=== PATIENT | female | born 1935 | race Two or more races ===

== ENCOUNTER 2019-09-17 13:59 | Inpatient (IN) | payer OTHER ==
[~2019-09-17] VITALS: Ht 162.6 cm; Wt 77.1 kg
[2019-09-17 13:30] VITALS: BP 196/100
--- NOTE | 2019-09-17 13:30 | NUR ---
Admission note: Patient is a 84year old female brought in as a direct admit from [facility]. Patient placed on a 5150 for being Gravely Disabled. Police were called because patient was found wondering around the neighborhood , lost and without shoes. Patients home was without food and patient claimed not to have eaten for over 24 hours. Upon face to face evaluation, patient is found to be very forgetful. Unaware of medical conditions or any medications from home. Only belongings with patient are pants and a shirt. No ID. Patient claims to live with her son "Rodney" but does not know the phone number. Patients B/P is noted high and [employer] notified for orders. Patient is anxious , forgetful and unable to contract for safety. Patient rights handbook give with the Advisement. Oriented patient to the unit and to the rules and protocol. Monitoring for behavior escalation. No acute distress at this time. Patients probate conservator was called and updated. The conservator is concerned with the patients living arrangement with son and this matter will be referred to the social workers.
[2019-09-17] MEDS ORDERED: MAGNESIUM HYDROXIDE 30 ML LIQUID UDC PO PRN (14:15)
[2019-09-17] MEDS ORDERED: MAG HYDROX/AL HYDROX/SIMETH 30 ML LIQUID UDC PO PRN (14:15)
[2019-09-17] MEDS ORDERED: BLOOD SUGAR DIAGNOSTIC 1 EACH STRIP VI ONE (14:15)
[2019-09-17] MEDS ORDERED: ACETAMINOPHEN 325 MG TABLET PO PRN (14:15)
[2019-09-17] MEDS: LORAZEPAM 1 MG TABLET PO PRN (15:39)
[2019-09-17 16:53] VITALS: BP 169/86
[2019-09-17] MEDS: hydrALAZINE HCL 10 MG TABLET PO PRN (17:21)
[2019-09-17 20:09] VITALS: BP 119/83
[2019-09-17] MEDS: RIVASTIGMINE TARTRATE 1.5 MG CAPSULE PO SCH (21:37)
--- NOTE | 2019-09-18 06:19 | NUR ---
Patient slept about a total of 8.0 hrs. last night.
[2019-09-18 07:30] VITALS: BP 171/90
[2019-09-18 07:52] LABS: BASOPHILS % (AUTO) 0.4 % (0.0-2.0); EOSINOPHILS % (AUTO) 0.6 % (0.0-7.0); HEMATOCRIT 36.8 % (31.2-41.9); HEMOGLOBIN 12.5 g/dL (10.9-14.3); LYMPHOCYTES # (AUTO) 1.7 K/uL (20.0-40.0); LYMPHOCYTES % (AUTO) 26.4 % (20.5-51.5); MEAN CORPUSCULAR HEMOGLOBIN 28.4 uug (24.7-32.8); MEAN CORPUSCULAR HGB CONC 34 g/dL (32.3-35.6); MEAN CORPUSCULAR VOLUME 83.4 fL (75.5-95.3); MONOCYTES # (AUTO) 0.7 K/uL (2.0-10.0); MONOCYTES % (AUTO) 10.2 % (0.0-11.0); NEUTROPHILS # (AUTO) 4.1 K/uL (1.8-8.9); NEUTROPHILS % (AUTO) 62.4 % (38.5-71.5); PLATELET COUNT (AUTO) 233 K/uL (179-408); RED BLOOD CELL COUNT(AUTO) 4.41 MIL/uL (3.63-4.92); WHITE BLOOD COUNT (AUTO) 6.6 K/uL (3.8-11.8)
[2019-09-18 08:04] LABS: BILIRUBIN,TOTAL 0.8 mg/dL (0.2-1.0); CREATININE 1.3 mg/dL (0.6-1.3); MAGNESIUM 2.2 mg/dL (1.8-2.4); PHOSPHOROUS 3.7 mg/dL (2.5-4.9); POTASSIUM 4.7 mmol/L (3.5-5.1); TOTAL PROTEIN, SERUM 6.8 g/dL (6.4-8.2)
[2019-09-18] MEDS: RIVASTIGMINE TARTRATE 1.5 MG CAPSULE PO SCH ×2 (08:45→20:02)
[2019-09-18] MEDS: AMLODIPINE 2.5 MG TABLET PO SCH (08:45)
[2019-09-18] MEDS: hydrALAZINE HCL 10 MG TABLET PO PRN (08:50)
[2019-09-18] MEDS: LORAZEPAM 1 MG TABLET PO PRN ×2 (11:23→18:13)
[2019-09-18 16:36] VITALS: BP 117/51
[2019-09-18 20:24] VITALS: BP 122/55
--- NOTE | 2019-09-19 06:18 | NUR ---
Patient slept about a total of 7.30 hours last night.
[2019-09-19 07:30] VITALS: BP 132/69
[2019-09-19] MEDS: CLONAZEPAM 0.5 MG TABLET PO SCH ×2 (08:43→16:58)
[2019-09-19] MEDS: risperiDONE 0.25 MG TABLET PO SCH ×2 (08:43→21:29)
[2019-09-19] MEDS: RIVASTIGMINE TARTRATE 1.5 MG CAPSULE PO SCH ×2 (08:43→21:29)
[2019-09-19] MEDS: AMLODIPINE 2.5 MG TABLET PO SCH (08:44)
[2019-09-19] MEDS: LORAZEPAM 1 MG TABLET PO PRN ×2 (13:10→23:44)
[2019-09-19 15:43] VITALS: BP 141/68
--- NOTE | 2019-09-19 22:00 | NUR ---
received to care, confused, but easy to direct, and pleasant upon approach. compliant with medications, and staff direction. as of 0, she remains awake in bed, but calm. no distress noted. will continue to monitor closely.
[2019-09-19 22:24] VITALS: BP 152/80
[2019-09-19] MEDS: TEMAZEPAM 7.5 MG CAPSULE PO PRN (22:44)
--- NOTE | 2019-09-19 22:44 | NUR ---
remains awake. pacing the hallway, asking for her car keys, so she can leave. reality orientation provided, but she remains fixed in her beliefs. PRN restoril was given, and she was redirected, back to bed. she is paranoid, and verbally hostile.
--- NOTE | 2019-09-19 23:44 | NUR ---
remains awake, and restless, requiring frequent redirection. PRN ativan was given, at this time.
--- NOTE | 2019-09-20 01:00 | NUR ---
remains restless, pacing the hallway, intermittently.
--- NOTE | 2019-09-20 01:40 | NUR ---
appears to be asleep. no distress noted.
--- NOTE | 2019-09-20 02:27 | NUR ---
is now awake, and pacing the hallway. asking for a taxi, home. was redirected back to her room.
--- NOTE | 2019-09-20 06:00 | NUR ---
slept 4 hours, total. continues to sleep. no distress noted.
[2019-09-20 07:30] VITALS: BP 131/59
--- NOTE | 2019-09-20 07:58 | NUR ---
Received patient in bed asleep, safety and comfort provided. will continue to monitor.
[2019-09-20] MEDS: RIVASTIGMINE TARTRATE 1.5 MG CAPSULE PO SCH ×2 (08:51→20:25)
[2019-09-20] MEDS: risperiDONE 0.25 MG TABLET PO SCH ×2 (08:51→20:25)
[2019-09-20] MEDS: CLONAZEPAM 0.5 MG TABLET PO SCH ×2 (08:51→17:21)
[2019-09-20] MEDS: AMLODIPINE 2.5 MG TABLET PO SCH (08:55)
--- NOTE | 2019-09-20 10:24 | NUR ---
Social Work UR Note: JOHN called Shirley with [facility] [phone] and left a voicemail for a return call.
--- NOTE | 2019-09-20 11:42 | NUR ---
Social Work Initial Discharge Plan: Patient currently resides at home [address] [place] [address]. Patient will be returning home upon discharge. SW will continue to work with patient, family, and MD to ensure a safe and proper discharge plan.
--- NOTE | 2019-09-20 11:42 | NUR ---
Social Work UR Note: Auth # [id number] JOHN spoke with Shirley with [facility] [phone] and discussed discharge planning. Shirley provided this lyric writer with the patient's conservator phone number Sean Levine ([phone]). Shirley stated that she has been in communication with Sean and are trying to decide whether or not the patient will go to assisted facility or return home. Shirley stated that Sean said the patient has the financial means to pay for a facility. Shirley will be calling this lyric writer back with the decision. However, Shirley stated that they might not authorize a longer stay for the patient ins the hospital. Auth # [id number] and to speak with Wallace to provide clinicals ([phone]).
--- NOTE | 2019-09-20 11:48 | NUR ---
Social Work UR Note: Auth # [id number] and to spoke with Franki to provide clinicals ([phone]) (fax: [phone]) and faxed patient's clinicals.
[2019-09-20 15:11] VITALS: BP 104/53
--- NOTE | 2019-09-20 15:36 | NUR ---
Social Work Firearms Report ([employer]): Water Filtration Technician completed and submitted a [employer] firearms report for 5150 grave disability certification. A copy of report has been placed in patient chart.
--- NOTE | 2019-09-20 15:44 | NUR ---
SW Family Contact: SW received a call from patient's daughter in law, Ginette Elias ([phone]) and was inquiring about information regarding the patient's whereabouts, and this travel writer directed her to the patient's conservator Sean Levine ([phone]).
--- NOTE | 2019-09-20 15:50 | NUR ---
JOHN Coordination of Care: SW spoke with Sean Levine pt's conservator from the Public [facility] ([phone]) and was discussed to find a Board and Care placement for the patient. Patient is accepted to [facility] [address] [place] [address] ([phone]; fax: [phone]), fleet administrator Amy. Estrada agreed with this placement.
[2019-09-20] MEDS: LORAZEPAM 1 MG TABLET PO PRN (19:37)
[2019-09-20 20:46] VITALS: BP 137/67
--- NOTE | 2019-09-20 22:00 | NUR ---
received to care, ambulating with an unsteady gait, up in christopher chair, for safety. remains anxious and confused. compliant with medications, and staff direction. PRN ativan was given at 1937, for anxiety, but it was ineffective. she was assisted to bed after taking her bedtime medications, but continued to get out of bed, so she was placed back in the christopher chair, for safety.
[2019-09-20] MEDS: TEMAZEPAM 7.5 MG CAPSULE PO PRN (22:20)
--- NOTE | 2019-09-20 22:20 | NUR ---
remains restless. PRN restoril, given for insomnia.
--- NOTE | 2019-09-21 01:46 | NUR ---
assited to bed at 0100. as of now, she appears to be asleep. no distress noted.
--- NOTE | 2019-09-21 06:00 | NUR ---
slept 3.0 hours, total. continues to sleep. no distress noted.
[2019-09-21 07:30] VITALS: BP 148/66
[2019-09-21] MEDS: risperiDONE 0.25 MG TABLET PO SCH ×2 (08:36→20:52)
[2019-09-21] MEDS: AMLODIPINE 2.5 MG TABLET PO SCH (08:36)
[2019-09-21] MEDS: CLONAZEPAM 0.5 MG TABLET PO SCH ×2 (08:36→16:14)
[2019-09-21] MEDS: RIVASTIGMINE TARTRATE 1.5 MG CAPSULE PO SCH ×2 (08:36→20:51)
[2019-09-21 16:11] VITALS: BP 164/84
[2019-09-21] MEDS: hydrALAZINE HCL 10 MG TABLET PO PRN (17:33)
[2019-09-21 19:58] VITALS: BP 141/65
[2019-09-21] MEDS: LORAZEPAM 1 MG TABLET PO PRN (20:01)
--- NOTE | 2019-09-21 22:00 | NUR ---
received to care, ambulating with an unsteady gait, up in christopher chair, for safety. remains anxious and confused. compliant with medications, and staff direction. PRN ativan was given at 2000, for anxiety, but it was ineffective. as of 2199, she remains restless. believes that her son is waiting for her to military cook. frequent redirection / reality orientation attempted. will continue to monitor closely.
[2019-09-21] MEDS: TEMAZEPAM 7.5 MG CAPSULE PO PRN (22:28)
--- NOTE | 2019-09-21 22:28 | NUR ---
PRN restoril given for insomnia
--- NOTE | 2019-09-21 23:00 | NUR ---
appears to be asleep, in bed. no distress noted.
--- NOTE | 2019-09-22 06:00 | NUR ---
slept 7 hours, total. continues to sleep. no distress noted.
[2019-09-22 07:30] VITALS: BP 137/54
--- NOTE | 2019-09-22 09:44 | NUR ---
SW Discharge Note: Patient will be discharged to his [facility] [address] [place] [address] ([phone]). The patient will be provided transportation arranged by the facility via [employer] today at 3pm. Patients conservator, Nj Levine ([phone]) is aware and agreeable with discharge plans. Patient is aware and agreeable with discharge plans. Patient presents with normal mood and euthymic affect. Patient denies suicidal or homicidal ideation. Patient will be following up at the facility with a primary care physician Dr. Compa Franz. Patient will be following up with psychiatrist Dr. Alicia Vogt [address] [facility] [address], [place] [address] ) and has a phone appointment scheduled on September 24, 2019 at 10:00AM. Patient was also provided with outpatient mental health resources to [facility] Line , and the National Suicide Prevention Lifeline .
[2019-09-22 10:31] VITALS: BP 137/54
[2019-09-22] MEDS: AMLODIPINE 2.5 MG TABLET PO SCH (10:31)
[2019-09-22] MEDS: RIVASTIGMINE TARTRATE 1.5 MG CAPSULE PO SCH (10:31)
[2019-09-22] MEDS: CLONAZEPAM 0.5 MG TABLET PO SCH (10:32)
[2019-09-22] MEDS: risperiDONE 0.25 MG TABLET PO SCH (10:32)
--- NOTE | 2019-09-22 15:54 | NUR ---
Discharged patient to [facility], assisted patient safely to the parking lot via wheelchair and picked up by [employer] at 3:10PM. All belongings and valuables well accounted for and brought with the patient. Discharge papers signed by and provided to the patient. Patient as well as patient's conservator Nj Levine aware and agreeable with discharge. Patient remained alert, not in any form of distress on room air. She denies any suicidal or homicidal ideations.
== END 2019-09-22 17:00 | DRG 885 ==
LOC: GPS 13:59
PROVIDERS: ADMIT Psychiatry & Neurology Psychiatry; ATTEND Hospitalist
DX: F29 Unspecified psychosis not due to a substance or known physiological condition (principal); F03.91 Unspecified dementia, unspecified severity, with behavioral disturbance; E44.1 Mild protein-calorie malnutrition; I10 Essential (primary) hypertension; E88.09 Other disorders of plasma-protein metabolism, not elsewhere classified; Z68.29 Body mass index [BMI] 29.0-29.9, adult; F41.9 Anxiety disorder, unspecified; N28.9 Disorder of kidney and ureter, unspecified
CPT/HCPCS: 36415; 71045; 83735; 84100; 85025